=== PATIENT | male | born 1945 | race Caucasian/White ===

== ENCOUNTER 2017-06-06 17:25 | Emergency (ER) | payer OTHER ==
[~2017-06-06] VITALS: Ht 182.9 cm; Wt 82.2 kg
[2017-06-06 17:29] VITALS: BP 158/93; PULSE 77; TEMP 37; O2SAT 97; Ht 182.9 cm; Wt 82.2 kg
[2017-06-06] MEDS ORDERED: DIPHTHERIA/TETANUS/PERTUSSIS 0.5 ML SYR/VIAL IM. ONE (17:45)
[2017-06-06] MEDS ORDERED: AMOX875T PO (17:47)
[2017-06-06] MEDS ORDERED: MULT-506 PO (17:48)
--- NOTE | 2017-06-06 17:49 | EMERGENCY ROOM VISIT NOTE ---
ED Visit Note First contact with patient: 17:31 CHIEF COMPLAINT: Dog bite HISTORY OF PRESENT ILLNESS: This 71-year-old male patient presents to the emergency department, ambulatory, approximately 20 minutes after they sustained a dog bite to the right lateral calf. The patient states he is visiting his sons home, and he recently got a new rescue dog. The dog is a proximally 7 years old, but is new to the family. The patient was walking to the bathroom, when he felt a bump into his leg. He did not realize immediately but it was the dog, and the dog at that point had bitten his right lateral calf. He states it was unexpected and unprovoked. Almost immediately, the patient noticed some bruising. The bite was through a pair of jeans and flannel pants. There was minimal bleeding. The patient states the pain was initially more severe, but now states it is 2/10. He immediately washed the area with discharge and water. The patient reports that he believes that the animal's immunizations are up-to-date. Pain is worse with movement. Tetanus status is not up to date. REVIEW OF SYSTEMS: A 6 system review of systems was completed with positives and pertinent negatives listed in the HPI. ALLERGIES: None MEDICATIONS: None PMH: None PHYSICAL EXAM: Vital Signs reviewed, see Nurse's notes, vital signs stable. GENERAL: This is a 71-year-old white male, awake, alert, well appearing, no acute distress. Non toxic in appearance. MUSCULOSKELETAL: Examination of the right lateral calf reveals a superficial puncture/abrasion type of wound. There is mild swelling on inspection. Palpation of the calf, tibia, and fibula reveals tenderness only superficially at the site of the injury, but no bony tenderness noted on deep palpation. There is very minimal bleeding. No significant crepitus or warmth noted. No joint space, tendon, or vascular involvement. Distal pulses intact. There is an incision overlying the tibia, which the patient states is from an old tibial plateau fracture which required surgery. SKIN: No signs of infection. NEURO: No sensory or motor deficits noted over all dermatomes and myotomes tested. EMERGENCY DEPARTMENT COURSE AND DECISION MAKING: I examined the patient. The patient presented with an isolated bite wound as described as above. By the history, there is no concern for rabies exposure. No signs of infection on examination. ER Treatment: Department of Health paperwork completed. Tdap booster was given. Antibiotic prophylaxis is indicated. The patient will be given 7 days of Augmentin. Due to the patient's history of surgery in the same leg, I did encourage him to keep a very close eye on the wound for signs of cellulitis or spreading infection. The area was cleansed with Betadine and sterile saline and dressed with bacitracin and a bandage. The patient was seen and evaluated by Dr. Bowen. He is in agreement with the assessment and plan. Discharge instructions reviewed. Discharged in stable condition. I attest that I have personally reviewed the patient's current medication list. Blood Pressure Screening: Patient was found to have a slightly elevated blood pressure due to circumstances. I do not believe that the patient requires hypertension monitoring. DIFFERENTIAL DIAGNOSIS: dog bite, cellulitis, abrasion, laceration, puncture wound, rabies, and others DIAGNOSIS: Dog bite Current/Historical Medications Scheduled Amoxicillin & Pot Clavulanate (Augmentin 875-125 mg), 1 TAB PO BID Multivitamin (Multivitamin), 1 TAB PO DAILY Allergies Coded Allergies: No Known Allergies (Unverified , 06/06/17) Vital Signs Date Time Temp Pulse Resp B/P (MAP) Pulse Ox O2 Delivery O2 Flow Rate FiO2 06/06/17 17:29 37.0 77 18 158/93 97 Room Air Medications Administered Medications (Trade) Dose Ordered Sig/Anjana Route Start Time Stop Time Status Last Admin Dose Admin Diphtheria/ Pertussis/Tetanus Vacc (Adacel Inj) 0.5 ml ONCE ONCE IM. 06/06/17 17:45 06/06/17 17:46 DC 06/06/17 18:10 0.5 ML Departure Information Impression Primary Impression: Dog bite Dispostion Home / Self-Care Condition GOOD Prescriptions Amoxicillin & Pot Clavulanate (Augmentin 875-125 mg) 1 Tab Tab 1 TAB PO BID for 7 Days, #14 TAB Prov: Tamy Martinez PA-C 06/06/17 Referrals No Doctor, Assigned (PCP) Patient Instructions ED Bite Dog, ED Immunization Tetanus and FU, [facility] Additional Instructions You were seen in the emergency department today for a dog bite. This does appear to be superficial in nature. You were prescribed Augmentin to be taken twice daily for 7 days. This is an antibiotic. All antibiotics have the potential to cause diarrhea. Stop this medication and contact a medical provider if you were to develop any significant adverse side effects including: wheezing, shortness of breath, passing out, vomiting, or a diffuse rash. Always take antibiotics as directed and COMPLETE the ENTIRE course regardless of the improvement of your symptoms. You were given a tetanus vaccination in the emergency department. This may cause your arm to be slightly sore for the next few days. You may take Tylenol or Motrin to help with soreness. If you experience allergic reaction symptoms including difficulty breathing, facial swelling, rash, or other concerning symptoms, return immediately to the emergency department. Ibuprofen(Motrin, Advil) may be used for fever or pain. Use 600mg every six hours as needed. Take with food. Avoid using more than 2400mg in a 24 hour period. Do not use 2400mg per day for more than three consecutive days without physician direction. Prolonged inappropriate use can lead to stomach upset or ulcers. (AND/OR) Acetaminophen(Tylenol) may be used for fever or pain. Use 1000mg every six hours as needed. Avoid using more than 3000mg in a 24 hour period. Follow-up with your primary care provider in 3-5 days for recheck of the wound. Turned to the emergency department for significant redness, swelling, puslike drainage, fever, chills, nausea, vomiting, or other concerning symptoms. Problem Qualifiers Primary Impression: Dog bite Encounter type: initial encounter Qualified Codes: W54.0XXA - Bitten by dog , initial encounter
--- NOTE | 2017-06-06 18:18 | EMERGENCY ROOM VISIT NOTE ---
ED Visit Note First contact with patient: 18:03 This Patient was discussed with the physician media assistant, Tamy Martinez PA-C. The pertinent historical and physical exam findings were confirmed. I agree with the studies ordered and with the interpretations of these studies. I agree with the disposition and care plan.
== END 2017-06-06 18:17 | disposition home or self-care (01) ==
LOC: C.EDB 17:29 → C.EDD 18:17
DX: S81.851A Open bite, right lower leg, initial encounter (principal); W54.0XXA Bitten by dog, initial encounter; Y92.019 Unspecified place in single-family (private) house as the place of occurrence of the external cause